=== PATIENT | female | born 1960 | race Caucasian/White ===

== ENCOUNTER 2019-07-05 13:30 | Outpatient (RCR) | payer BC, SELFPAY ==
[2019-05-29 09:06] VITALS: PULSE 80
--- NOTE | 2019-07-02 09:58 | PCCPR ---
Absent due to illness Juany called states she has a cold and earache. She verbalized she plans to see her provider.
--- NOTE | 2019-07-05 07:01 | PCCPR ---
Pt called and is still feeling sick- cxl CR 07/04; hopes to return thurs. 07/05.
--- NOTE | 2019-07-06 08:27 | PCCPR ---
07/05/19 Juany attended her exercise session during exercise her heart rate was elevated in the 140's with irregularities and possibly Afib, flutter, SVT. We had her switch to seated exercise and skip free weights. At the recovery phase her HR did not come down. We retained called her [employer] [facility]'s office Dr Edgardo Cee spoke with the MA and later heard the doctors instruction for Juany to come to their office for evaluation. Her transported her.
--- NOTE | 2019-07-06 08:34 | PCCPR ---
Followed up with Juany today she is hospitalized States she was given Cardiazem IV and is scheduled for an ADAMS today. States the MD spoke of adding sotolol. Asked Juany to keep us informed. Explained we will call and check on her. Reinforced once released we will need a release to resume rehab.
--- NOTE | 2019-07-09 13:49 | PCCPR ---
Juany called states she was released from the hospital over the weekend States she still feels fatigued and did not get much rest there. She feels weak and tired will be off until she goes to see the MD on . Explained we need a written release to return to rehab.
--- NOTE | 2019-07-18 13:58 | PCCPR ---
Left voicemail requesting Juany call us back on her plan to return.
--- NOTE | 2019-07-25 14:49 | PCCPR ---
Have not heard from Juany, called today to inquire about her return, did not answer, left message.
--- NOTE | 2019-08-01 13:52 | PCCPR ---
Called Juany again today, left message to let us know her plans for returning.
--- NOTE | 2019-08-08 09:33 | PCCPR ---
Program is temporarily suspended due to COVID outbreak.
--- NOTE | 2019-08-08 09:51 | PCCPR ---
Continued absence Spoke with Juany she had a 3 week hospitalization related to her heart rate and ryhthm. She is now on sotolol and later started on cardiazem to control her rate and rhythm. she is now seeing an named account executive considering hormonal influence in her situation. States she has not been feeling well and has been staying in concerned about the current corono virus crisis. Explained that currently we are closed and hope to resume pts in next few weeks. She said her Claims Attorney did want her to return to rehab however she does not have a written release. Let her know to expect a call from us when we are able to resume service.
--- NOTE | 2019-08-15 13:55 | PCCPR ---
Called patient in regards to the temporary closure of our department continuing until at least September 12. Juany states she is finally getting some energy back after the hospitalization and the medication changes. She is trying to get some exercise in, but admits it hasn't been much. Will mail out temporary home exercise guidelines. Will continue to follow patient weekly.
--- NOTE | 2019-08-22 11:32 | PCCPR ---
Called Juany today for weekly check, did not answer the phone, left a message.
--- NOTE | 2019-08-28 15:18 | PCCPR ---
Called to check on Juany for our weekly phone calls no answer and message left.
--- NOTE | 2019-09-05 13:35 | PCCPR ---
Weekly update call-Left message.
--- NOTE | 2019-09-12 13:50 | PCCPR ---
Weekly update call-Left message informing patient of continued closure through the month of September due to the extension of the fdc in place order.
--- NOTE | 2019-09-27 12:55 | PCCPR ---
Starting Bi-Weekly calls. Left message for patient.
--- NOTE | 2019-10-11 14:51 | PCCPR ---
Bi-weekly phone call make, no answer, left message.
--- NOTE | 2019-11-09 14:02 | PCCPR ---
Juany called two weeks ago to inform her that Cardiac rehab was reopening on November 18. Unable to talk with her, message left to return call if wanting to return. Have not received call, Juany discharge from program.
== END 2019-07-05 23:59 | disposition home or self-care (01) ==
LOC: ANHCPREHAB 13:30
PROVIDERS: PCP Family Medicine
DX: Z95.2 Presence of prosthetic heart valve (principal)
CPT/HCPCS: 93798

== ENCOUNTER 2019-09-26 02:26 | Observation (INO) | payer BC, SELFPAY ==
[2019-09-26] VITALS (18 sets, daily range): BP systolic 106–150; BP diastolic 73–87; PULSE 72–112; RESP 12–20; TEMP 36.7–37.1; O2SAT 96–99; BMI 25.9
--- NOTE | ~2019-09-26 | US_ITS ---
EXAMINATION: US right upper quadrant DATE: 09/26/2019 15:10 INDICATION: Abdominal pain. TECHNIQUE: Multiple grayscale and Doppler ultrasound images of the abdomen were obtained. COMPARISON: CT abdomen and pelvis 09/26/2019 FINDINGS: The visualized portions of the head and body of the pancreas are normal. The liver is hemant l without focal lesion. There is normal flow in main portal vein. The gallbladder is normal in size a nd contains sludge. No gallstones or gallbladder wall thickening. There was no sonographic Zee sig n. The common duct is normal and measures 3 mm. IMPRESSION: 1. Gallbladder sludge. No evidence of acute cholecystitis. Reviewed, dictated and finalized at location A.
--- NOTE | ~2019-09-26 | XR_ITS ---
EXAMINATION: XR chest 2V DATE: 09/26/2019 03:07 INDICATION: Chest pain. TECHNIQUE: Frontal and lateral views of the chest were obtained. COMPARISON: CT abdomen and pelvis 09/26/2019 FINDINGS: There is no pneumonia, pleural effusion, or pneumothorax. Cardiomegaly is noted. There are changes of mitral valve replacement. IMPRESSION: 1. Cardiomegaly. Reviewed, dictated and finalized at location A. IMPRESSION: 1. Cardiomegaly.
--- NOTE | ~2019-09-26 | CT_ITS ---
EXAMINATION: CT abdomen pelvis w con DATE: 09/26/2019 04:08 INDICATION: Epigastric abdominal pain. TECHNIQUE: Computed tomography (CT) of the abdomen and pelvis was performed with 100 mL Omnipaque 350 intravenous contrast. Automated exposure control and iterative reconstruction technique were employe d. The dose-length product was 498.21 mGy-cm. COMPARISON: CT abdomen and pelvis 11/18/2014 FINDINGS: The visualized portions of the lung bases demonstrate smooth septal thickening and mild deandra undglass opacities. There is mild dependent atelectasis bilaterally. No pleural effusion. Cardiomegal y is noted. There are changes of mitral replacement. No pericardial effusion. The liver demonstrates periportal edema. Again seen is a 14 mm hyperenhancing mass in left hepatic lobe, likely a hemangioma or focal nodular hyperplasia. The gallbladder, spleen, pancreas, and left adrenal gland are normal. Again seen is an 8 mm mass in right adrenal gland, likely an adenoma. There are cysts in the kidneys measuring up to 11 mm on the right. There are no dilated loops of bowel. There is diverticulosis of t he colon without evidence of diverticulitis. The appendix is normal. There are no pathologically enla rged lymph nodes. There is no free intraperitoneal fluid. There is a 2.4 cm cyst in right ovary, like ly benign. There is mild lumbar spondylosis. Lumbar dextrocurvature is noted. IMPRESSION: 1. Mild lung disease, which may be mild pulmonary edema or atypical pneumonia. 2. Cardiomegaly. Reviewed, dictated and finalized at location A.
--- NOTE | 2019-09-26 02:37 | ECG_ITS ---
Measurements Intervals [place] Rate: 72 P: 45 MA: 192 QRS: -26 QRSD: 100 T: 14 QT: 393 QTc: 432 Interpretive Statements SINUS RHYTHM BASELINE WANDER- I, II, III NORMAL ECG Electronically Signed On 09-26-2019 7:13:15 CDT by Scot Montemayor D.O.
[2019-09-26 03:03] LABS: Basophils Percent Auto 0.1 % (0.2-1.2); Eosinophils Absolute Auto 0.1 K/mm3 (0-0.3); Eosinophils Percent Auto 0.9 % (0-4.4); Hematocrit 41.4 % (37.0-47.0); Hemoglobin 13.1 g/dL (12.0-15.0); Immature Granulocyte Absolute 0.01 K/mm3 (0.00-0.031); Immature Granulocyte Percent A 0.1 % (0-0.5); Lymphocytes Absolute Auto 3.89 K/mm3 (0.9-3.2); Lymphocytes Percent Auto 49.7 % (18.3-44.2); Mean Corpuscular HGB Conc 31.6 g/dl (32-36); Mean Corpuscular Hemoglobin 26.2 pg (26-34); Mean Corpuscular Volume 82.8 fl (80-100); Mean Platelet Volume 10.2 fl (7.4-10.4); Monocytes Absolute Auto 0.6 K/mm3 (0.1-0.6); Monocytes Percent Auto 7.5 % (2.6-8.5); Neutrophils Absolute Auto 3.3 K/mm3 (1.3-6.7); Neutrophils Percent Auto 41.7 % (45.5-73.1); Platelet Count Result 284 k/mm3 (150-375); Red Cell Distribution Width 19.1 % (11.5-14.5); White Blood Count 7.8 K/mm3 (4.5-10.0)
[2019-09-26 03:07] LABS: INR 1.8; Prothrombin Time 20.7 Seconds (11.1-14.7)
[2019-09-26 03:08] LABS: Partial Thromboplastin Time 32.5 SECONDS (22.3-36.8)
[2019-09-26 03:11] LABS: Alanine Aminotransferase 138 U/L (4-35); Albumin Level 4.2 g/dL (3.5-5.1); Alkaline Phosphatase 152 U/L (38-126); Aspartate Amino Transferase 240 U/L (14-36); Bilirubin,Total 0.3 mg/dL (0.2-1.3); Lipase 314 U/L (23-300)
[2019-09-26 03:17] LABS: Blood Urea Nitrogen 21 mg/dL (7-17); Calcium 11.5 mg/dL (8.4-10.2); Carbon Dioxide 32 mmol/L (22-30); Chloride 102 mmol/L (98-107); Estimated CRCL calculation 50 ml/min; Estimated Glomerular Filt Rate > 60; Glucose 118 mg/dL (65-105); Potassium 4.2 mmol/L (3.4-5.0); Sodium 136 mmol/L (137-145)
[2019-09-26 03:29] LABS: Troponin I < 0.012 ng/mL (0.000-0.034)
[2019-09-26] MEDS: LACTATED RINGERS 1,000 ML 999 ML IV CONT (03:40)
--- NOTE | 2019-09-26 03:57 | ED.CHESTPAIN ---
HPI - Chest Pain General Chief Complaint: Chest Pain Stated Complaint: chest pain Time Seen by Provider: 09/26/19 03:04 Source: patient Mode of arrival: EMS Limitations: no limitations History of Present Illness HPI narrative: This patient is a 59 yo female who presents for evaluation of sudden onset epigastric pain. Patient states she woke up with squeezing in a band fashion around her upper abdomen. She states this pain radiated to her back. She has been having intermittent pain similar to this since she had her valve repair 5 months ago. She denies shortness of breathing, nausea or vomiting. She also denies fever or chills. She reports having normal cardiac cath in march 2019. Onset (ago): minute(s) Timing of current episode: constant and other (resolving) Prior episodes: Yes Onset: during rest Pain location: epigastric Pain radiation: back Quality: other (squeezing bandlike) Related Data Home Medications Medication Instructions Recorded Confirmed aspirin [Aspirin Low Dose] 81 mg PO DAILY 05/29/19 05/29/19 verapamil 120 mg PO DAILY 05/29/19 05/29/19 warfarin [Coumadin] 4 mg PO DAILY 05/29/19 05/29/19 diltiazem HCl [Cardizem] 120 mg PO Q8H 09/26/19 sotalol 40 mg PO BID 09/26/19 Allergies Allergy/AdvReac Type Severity Reaction Status Date / Time No Known Allergies Allergy Verified 09/26/19 02:31 Review of Systems Review of Systems: All systems reviewed & are unremarkable except as noted in HPI and below Constitutional: Constitutional: Denies chills and Denies fever(s) Cardiovascular: Cardiovascular: Denies rapid heart rate and Denies radiating jaw, neck or arm pain Respiratory: Respiratory: Denies cough and Denies dyspnea Gastrointestinal: Gastrointestinal: Denies diarrhea, Denies nausea and Denies vomiting Musculoskeletal: Musculoskeletal: Reports back pain PMFSH Past Medical History Medical History (Updated 09/26/19 @ 07:46 by James South MD) Atrial fibrillation Surgical History Surgical History (Updated 09/26/19 @ 07:53 by Dorota Jain MD) H/O mitral valve repair Social History Social History Smoking status: Never smoker Second hand tobacco smoke exposure: Yes Alcohol intake: former Substance use: never Spiritual care concerns: No Exam Narrative: Exam Narrative: GENERAL: Well-appearing, well-nourished, and in no acute distress. HEAD: Normocephalic, atraumatic EYES: PERRLA and EOMI, conjunctiva clear without discharge THROAT:Mucous membranes moist, Oropharynx normal without erythema, exudate, peritonsillar swelling or fluctuance NECK: Supple, without lymphadenopathy or mass RESPIRATORY: No respiratory distress, Airway patent, Respirations non-labored, Clear to auscultation without rales, rhonchi or wheeze HEART: Regular rate and rhythm. No murmur heard. Normal peripheral pulses. ABDOMEN: Soft, nontender, nondistended, normal active bowel sounds. No masses. No rebound or guarding, No organomegaly. EXTREMITIES: No edema, normal strength with full range of motion. SKIN: Warm, dry, normal color without rash NEURO: Alert and oriented x3. CN 2-12 grossly intact. No focal deficits. PSYCH: Normal mood and affect. Course Reevaluation(s) Reevaluation #1: I discussed with patient that she her CT scan reported atypical pneumonia. She reports intermittent cough but states it has not been significant. I discussed she will be assessed for covid. Her oxygen was found to be 89-90% on room air by nursing staff so she is now on nasal cannula oxygen and she will be admitted. She reports history of hypercalcemia and elevated lfts. Date: 09/26/19 Time: 06:09 Consultations Consultation #1: I Discussed case with Dr. Carter who accepts patient for admission to IMU. Date: 09/26/19 Time: 06:11 Vital Signs Vital signs: Vital Signs Temperature 98.4 F 09/26/19 02:25 Pulse Rate 73 09/26/19 02:25 Respiratory Rate 17 09/26/19 02:25 Blood Pressure 123/82
--- NOTE | 2019-09-26 05:26 | PC.NURSE ---
Patient placed on 2L O2 via NC at this time. Patient's O2 saturations began to range from 87%-92%. Patient in no respiratory distress, speaking in full sentences.
[2019-09-26 06:13] LABS: Alveolar/Arterial O2 Gradient 54.1 mmHg; Base Excess ABG -2.1 mEq/l (+/-2.0); Carboxyhemoglobin 0.5 % THb (0-2.0); Fractional Inspired Oxygen 28 %; HCO3 ABG 22.6 mEq/l (22.0-26.0); Methemoglobin ABG 0.2 %THb (0-1.5); Oxygen Content ABG 19.2 %vol (16.0-22.0); Oxygen Saturation ABG 97.5 % (95.0-100.0); Oxyhemoglobin 96.5 % THb (90.0-100.0); PCO2 ABG 38.7 mmHg (35.0-45.0); PO2 ABG 99.9 mmHg (80.0-100.0); PO2 FiO2 Ratio Arterial Blood 3.57 %; Reduced Hemoglobin 2.8 %THb (0-5.0); Total Hemoglobin 14.1 g/dL (12.0-18.0); pH ABG 7.385 (7.350-7.450)
[2019-09-26 06:14] LABS: Device NASAL CANNULA; Modified Allen's Test Pass; Site Drawn LEFT RADIAL
[2019-09-26 06:32] LABS: NT Pro B Type Natriuretic Pept 194 PG/ML (5-100)
--- NOTE | 2019-09-26 06:37 | PC.NURSE ---
Patient placed on room air at this time, O2 saturations 94%-96%.
[2019-09-26 07:05] LABS: Troponin I 0.015 ng/mL (0.000-0.034)
--- NOTE | 2019-09-26 07:39 | PM.IMHP ---
H&P: HPI History of Present Illness Chief complaint: chest pain,hypoxia,suspected covid Narrative: Juany Dawkins is a 59 year old female here for upper abdominal pain that woke her up this morning around 2AM. She has not had previous episodes of abdominal pain recently. She was recently treated for a UTI with Bactrim with her last dose on September 22. She had a mild fatty meal the night before. Liver enzymes are elevated here but she states that she has chronic elevation of the liver enzymes but cannot tell me the severity of this. She is not sure that she has had a full workup but did say that she had a ultrasound of the liver that was normal. She denies alcohol use. No history of IV drug use. No exposures to needle sticks or blood products. She does not use acetaminophen. She denies any fever, chills, chest pain, palpitations, shortness of breath or cough. She is having recurrent urine frequency and is concerned her UTI has returned. She is noted to have elevated calcium level here but this also is longstanding is being evaluated by an project drilling engineer. No definitive diagnosis has been made but felt related to thyroid disease. Patient presented to [facility] in March for shortness of breath found to have atrial fibrillation, mitral valve prolapse with severe mitral valve regurgitation. She was transferred to [facility] and underwent mitral valve repair and Maze procedure. She did undergo left heart catheterization which showed clean coronary arteries per patient. She was hospitalized for a total of 2 weeks. She lost approximately 36 lb and has not regained this weight since discharge. She has been modifying her diet since discharge. She had recurrent atrial fibrillation and was hospitalized again in June [facility]. She remains on warfarin for the atrial fibrillation. She has had multiple medication adjustments but is currently on diltiazem and sotalol for rate maintenance. Because of the abdominal pain, patient presented to the emergency room for evaluation. In the emergency room, patient was hemodynamically stable. Patient in ED found to have pulse ox 89-90% and CT of the abdomen showing bibasilar groundglass opacities. She was tested for COVID. She has not had any exposure that she is aware of but her is an essential worker. Exposed to family on Tuesday as well. AST 240 and ALT 138 on admission. Calcium 11.5 which is where her calcium has been in the past. She was treated with morphine and Zofran and started on IVF. She was admitted to IMU. She feels better this morning. Review of Systems Review of Systems: All systems reviewed & are unremarkable except as noted in HPI and below PMFSH Past Medical History Medical History (Updated 09/26/19 @ 11:25 by James South MD) Atrial fibrillation Elevated LFTs Hx of fracture of radius Hypercalcemia Mitral regurgitation Mitral valvular prolapse Thyroid nodule Surgical History Surgical History (Updated 09/26/19 @ 11:02 by James South MD) H/O mitral valve repair Hx of cardiac catheterization Clean coronaries in Mar 2019 Hx of foot surgery bilaterally Hx of prior ablation treatment For SVT Family History Family History Father Kidney disease PCKD Social History Social History (Updated 09/26/19 @ 11:03 by James South MD) Social History: Lives at home with her . Lifelong nonsmoker. No alcohol or drug use. Full code. She nominates her be the individual who would make medical decisions for her if she is unable. Smoking status: Never smoker Second hand tobacco smoke exposure: Yes Alcohol intake: former Substance use: never Spiritual care concerns: No Meds Home Medications and Allergies Home Medications Medication Instructions Recorded Confirmed Type aspirin [Aspirin Low Dose] 81 mg PO DAILY 05/29/19 09/26/19 His
--- NOTE | 2019-09-26 07:42 | PC.NURSE ---
This patient, Juany Dawkins, was admitted to Intensive Care Unit-5. Patient/family oriented to hospital policies and general routines including ID bracelet, bed and alarms, visiting hours, pain management, procedures, bathroom and other care routines, personal items, smoking policy, room service/diet, and visiting hours. Valuables list has been completed. Information on how to activate the Rapid Response Team has been discussed. Patient/Family are encouraged to report perceived risks to care and to ask questions if they do not understand what they are told or what they should do.
[2019-09-26] MEDS: ASPIRIN 81 MG ENTERIC TABLET PO (12:01)
[2019-09-26] MEDS: SOTALOL HCL 40 MG TABLET PO ×2 (12:01→20:38)
[2019-09-26 16:38] LABS: SARS-CoV-2 RNA PCR Negative
--- NOTE | 2019-09-26 18:01 | PC.NURSE ---
Dr. South notified of Covid-19 results negative. Droplet precautions d/c'd. Standard Precautions initiated. Clarification also received on the 6 hour troponin from 0830 this AM. Unable to obtain specimen after several attempts, will add it to AM labs for tomorrow.
--- NOTE | 2019-09-26 18:45 | PC.NURSE ---
This patient, Juany Dawkins, was transferred to [ 316] on 09/26/19 at 1851. Personal belongings sent with patient. Belongings list checked and signed with receiving [ ]. Report given to [NISHA Ha @ [id number] ]. Appropriate documentation sent with patient.
--- NOTE | 2019-09-26 18:54 | PC.NURSE ---
This patient, Juany Dawkins, was received from [ICU] on 09/26/19 at 1850. Personal belongings list checked and signed. Patient/family oriented to unit policies and routines
[2019-09-26] MEDS: WARFARIN (*PBKC) 5 MG TABLET PO (20:37)
[2019-09-26 21:11] LABS: Add Urine Microscopic? YES; Appearance Urine Clear (Clear); Bilirubin Urine Negative (Negative); Blood Urine 2+ (Negative); Color Urine Straw (Yellow); Glucose Urine UA Negative (Negative); Ketones Urine Negative (Negative); Leukocyte Esterase Ur Negative LEU/UL (Negative); Mucus Urine Rare /lpf; Nitrate Urine Negative (Negative); Protein Urine Negative (Negative); Specific Grav Ur 1.012 (1.001-1.035); Squamous Epithelial Cell Urine Rare /hpf (Few); Urobilinogen Urine Negative mg/dL (<2.0); WBC Urine 0-3 /hpf
[2019-09-27] VITALS (9 sets, daily range): BP systolic 93–110; BP diastolic 50–74; PULSE 70–100; RESP 16–20; TEMP 36.4–36.8; O2SAT 96–98
[2019-09-27 07:33] LABS: Basophils Percent Auto 0.6 % (0.2-1.2); Eosinophils Absolute Auto 0.1 K/mm3 (0-0.3); Eosinophils Percent Auto 2.5 % (0-4.4); Hematocrit 42.2 % (37.0-47.0); Hemoglobin 13.1 g/dL (12.0-15.0); Immature Granulocyte Absolute 0.01 K/mm3 (0.00-0.031); Immature Granulocyte Percent A 0.2 % (0-0.5); Lymphocytes Absolute Auto 2.23 K/mm3 (0.9-3.2); Mean Corpuscular Volume 83.7 fl (80-100); Mean Platelet Volume 10.9 fl (7.4-10.4); Monocytes Absolute Auto 0.4 K/mm3 (0.1-0.6); Neutrophils Percent Auto 41.7 % (45.5-73.1); Platelet Count Result 253 k/mm3 (150-375); Red Blood Count 5.04 M/mm3 (4.2-5.4); Red Cell Distribution Width 19.2 % (11.5-14.5); White Blood Count 4.7 K/mm3 (4.5-10.0)
[2019-09-27 07:43] LABS: Prothrombin Time 21.9 Seconds (11.1-14.7)
[2019-09-27 08:08] LABS: Parathyroid Intact 118.6 pg/mL (7.5-53.5); Troponin I < 0.012 ng/mL (0.000-0.034)
[2019-09-27 08:18] LABS: Alanine Aminotransferase 466 U/L (4-35); Alkaline Phosphatase 140 U/L (38-126); Aspartate Amino Transferase 277 U/L (14-36); Bilirubin,Total 0.6 mg/dL (0.2-1.3); Blood Urea Nitrogen 14 mg/dL (7-17); Calcium 10.9 mg/dL (8.4-10.2); Carbon Dioxide 26 mmol/L (22-30); Chloride 105 mmol/L (98-107); Estimated CRCL calculation 73 ml/min; Estimated Glomerular Filt Rate > 60; Glucose 88 mg/dL (65-105); Lipase 177 U/L (23-300); Sodium 136 mmol/L (137-145)
[2019-09-27] MEDS: ASPIRIN 81 MG ENTERIC TABLET PO (08:54)
[2019-09-27] MEDS: SOTALOL HCL 40 MG TABLET PO (09:21)
[2019-09-27 10:29] LABS: Hepatitis B Surface Antigen Negative (Negative)
[2019-09-27 10:35] LABS: HAV RESULT Negative (Negative); Hepatitis B Core IgM Result Negative (Negative)
[2019-09-27 10:47] LABS: Hepatitis C Virus Antibody Negative (Negative)
--- NOTE | 2019-09-27 12:01 | PM.IMPN ---
Progress Note: A&P Assessment and Plan (1) Elevated LFTs: Code(s): R79.89 - Other specified abnormal findings of blood chemistry Status: Acute Assessment and Plan: No abdominal pain currently. Lipase normal on recheck. CT scan showing periportal edema but normal appearing Gallbladder. Levels higher now with AST 277 with ALT 466 but bilirubin remains normal. AP level mildly elevated on admission but better today. Gallbladder US showing sludge but no evidence of acute cholecystitis. Old records reviewed and AST and ALT have been mildly elevated at prior hospitalizations but not to the extent seen here. Hepatitis panel and SARS-CoV-2 PCR negative. Probably related to a viral illness affecting the liver given the periportal edema and mild lymphocytosis. Doubt hepatic congestion. Will consult GI. Patient asymptomatic so consider further outpatient workup. (2) Abdominal pain: Qualifiers: Abdominal location: epigastric Qualified Code(s): R10.13 - Epigastric pain Code(s): R10.9 - Unspecified abdominal pain Status: Acute Assessment and Plan: Transient abd pain that resolved on admission and has not recurred. Not taking narcotics. Doubt gastritis or PUD. Suspect abd pain related to above. (3) Pneumonia: Qualifiers: Laterality: bilateral Lung location: lower lobe of lung Pneumonia type: due to unspecified organism Qualified Code(s): J18.9 - Pneumonia, unspecified organism Code(s): J18.9 - Pneumonia, unspecified organism Status: Acute Assessment and Plan: CT scan of the abdomen showing the lung bases demonstrating smooth septal thickening and mild groundglass opacities. There is mild dependent atelectasis bilaterally. Patient with no significant cough. Normal white count. No fevers or chills. Patient may have possible viral pneumonia. There is also a history of staph PNA to suggest this may be more chronic, possibly scarring. Doubt that this is bacterial in nature. Abx on hold for now. Remains on room air. (4) Hypoxia: Code(s): R09.02 - Hypoxemia Status: Acute Assessment and Plan: Patient mildly hypoxic in the emergency room. Patient has been weaned to room air early on her admission. CT scan of the abdomen showing bibasilar ground-glass opacities. BNP 194. COVID testing negative. Consider viral pneumonias, scarring or possibly pulmonary edema. Remains on room air. (5) Atrial fibrillation: Qualifiers: Atrial fibrillation type: paroxysmal Qualified Code(s): I48.0 - Paroxysmal atrial fibrillation Code(s): I48.91 - Unspecified atrial fibrillation Status: Acute Assessment and Plan: Patient normal sinus rhythm by EKG and telemetry. Dltiazem and sotalol resumed. INR therapeutic. Will continue the warfarin. Okay to stop tele (6) Hypercalcemia: Code(s): E83.52 - Hypercalcemia Status: Acute Assessment and Plan: Patient with known hypercalcemia. Old records reviewed and calcium level to 11.6 in June and 11.2 in March. iPTH here is elevated at 119 felt related to parathyroid disease. She has known thyroid nodules. Calcium better at 10.9. Continue to monitor. Subjective Date/time seen: 09/27/19 12:01 Interval history: 59yo female here for abdominal pain. No further abd pain. Eating normally without n/v. No CP or SOB. No cough. States that she has had lung findings on prior imaging studies (but only CXR reports in the old records showing clear lung knight). Exam Narrative: Exam Narrative: Gen - NARD Chest -left base inspir crackles o/w clear, nml RR CV - RRR S1/S2 with a 2/6 systolic murmur heard loudest at apex. Tele showing no significnat dysrhythmias Abd - Soft, NT/ND, Positive BS Ext - No pedal edema Psych - Nml mood and affect Skin - Warm and dry Objective Data Vital Signs Vital Signs: Vital Signs - 24 hr
--- NOTE | 2019-09-27 14:42 | WPDGICN ---
Assessment and Plan Assessment and plan (1) Elevated LFTs: Code(s): R79.89 - Other specified abnormal findings of blood chemistry Status: Acute Assessment and Plan: probably multifactorial (recent use of antibiotics for UTI, also viral infection although COVID negative, pulmonary congestion) but she is feeling better now, no more discomfort. CT and ultrasound reviewed. hepatitis panel negative Recommend to trend lft's but she would rather go if possible since she is asymptomatic now, we can get blood work and then she can follow up in my office in ~ 2 weeks (2) Abdominal pain: Qualifiers: Abdominal location: epigastric Qualified Code(s): R10.13 - Epigastric pain Code(s): R10.9 - Unspecified abdominal pain Status: Acute Assessment and Plan: resolved (3) Hypercalcemia: Code(s): E83.52 - Hypercalcemia Status: Acute Assessment and Plan: probably hyperparathyroidism- she will see her educator senior clinical (4) Atrial fibrillation: Qualifiers: Atrial fibrillation type: paroxysmal Qualified Code(s): I48.0 - Paroxysmal atrial fibrillation Code(s): I48.91 - Unspecified atrial fibrillation Status: Acute Assessment and Plan: on coumadin (5) Hypoxia: Code(s): R09.02 - Hypoxemia Status: Acute Assessment and Plan: resolved (6) H/O mitral valve repair: Code(s): Z98.890 - Other specified postprocedural states Status: Acute (7) Anticoagulant long-term use: Code(s): Z79.01 - custodial (current) use of anticoagulants Status: Acute GI Consult Note Consult date/time: 09/27/19 14:42 Reason for consult: elevated liver enzymes HPI: Juany Dawkins is a 59 year old female with history of A-Fib, MVR 04/2019 on coumadin, hypercalcemia (work up in process with educator senior clinical) and mild elevated liver enzymes (transaminse in 40's) here with new onset of epigastric/chest discomfort that woke her up. She was worried that could be her heart and came to ER. Troponins negative, BNP 190, had elevated transaminses 200-400's, normal bili. CT scan showed liver with mild periportal edema, mild lung disease, which may be mild pulmonary edema or atypical pneumonia and cardiomegaly. Abdominal ultrasound with normal bile duct size, GB sludge without cholecystitis. She denies any more discomfort and is feeling better. She also recently diagnosed with UTI (did not have urine sample and had virtual visit with her doctor)- treated with nitrofurantoin and then with bactrim that just completed few days ago. No fever or chills, no N/V, normal appetite. Review of Systems Review of Systems: All systems reviewed & are unremarkable except as noted in HPI and below Constitutional: Constitutional: Denies chills and Denies fever(s) Eyes: Eyes: Denies blurry vision ENT: Denies nasal congestion Cardiovascular: Cardiovascular: Denies rapid heart rate and Denies radiating jaw, neck or arm pain Respiratory: Respiratory: Denies cough and Denies dyspnea Gastrointestinal: Gastrointestinal: Denies diarrhea, Denies nausea and Denies vomiting Genitourinary: Genitourinary: Denies urinary incontinence Musculoskeletal: Musculoskeletal: Reports back pain Integumentary/Breasts: Skin/Breast: Denies skin pain Neurologic: Denies confusion Psychiatric: Psychiatric: Denies depression [facility] Past Medical History Medical History (Updated 09/27/19 @ 14:50 by Merrill Root MD) Anticoagulant long-term use Atrial fibrillation Elevated LFTs Hx of fracture of radius Hypercalcemia Mitral regurgitation Mitral valvular prolapse Thyroid nodule Surgical History Surgical History (Updated 09/27/19 @ 14:50 by Merrill Root MD) H/O mitral valve repair Hx of cardiac catheterization Clean coronaries in Mar 2019 Hx of foot surgery bilaterally Hx of prior ablation treatment For SVT Family History Family History (
--- NOTE | 2019-09-27 14:48 | PC.NURSE ---
1428 pt leaves floor via w/c per hospital staff, with all belongings and d/c instructions, med list and prescriptions.
--- NOTE | 2019-09-27 14:48 | PM.DS ---
DS: Diagnosis Admitting Diagnosis Admitting Diagnosis: Other specified abnormal findings of blood chemistry Discharge Diagnosis (1) Elevated LFTs: Code(s): R79.89 - Other specified abnormal findings of blood chemistry Status: Acute Assessment and Plan: No abdominal pain currently. Lipase 314 but normal on recheck. CT scan showing periportal edema but normal appearing Gallbladder. Levels higher now with AST 277 with ALT 466 but bilirubin remains normal. AP level mildly elevated on admission but better today. Gallbladder US showing sludge but no evidence of acute cholecystitis. Old records reviewed and AST and ALT have been mildly elevated at prior hospitalizations but not to the extent seen here. Hepatitis panel and SARS-CoV-2 PCR negative. Probably related to a viral illness affecting the liver given the periportal edema and mild lymphocytosis. Doubt hepatic congestion. Patient asymptomatic and is requesting discharge. GI felt patient could have further outpatient workup. Patient to follow up with GI in 2 weeks with new set of blood work. (2) Abdominal pain: Qualifiers: Abdominal location: epigastric Qualified Code(s): R10.13 - Epigastric pain Code(s): R10.9 - Unspecified abdominal pain Status: Acute Assessment and Plan: Transient abd pain that resolved on admission and has not recurred. Not taking narcotics. Doubt gastritis or PUD. Suspect abd pain related to above. (3) Pneumonia: Qualifiers: Laterality: bilateral Lung location: lower lobe of lung Pneumonia type: due to unspecified organism Qualified Code(s): J18.9 - Pneumonia, unspecified organism Code(s): J18.9 - Pneumonia, unspecified organism Status: Acute Assessment and Plan: CT scan of the abdomen showing the lung bases demonstrating smooth septal thickening and mild groundglass opacities. There is mild dependent atelectasis bilaterally. Patient with no significant cough. Normal white count. No fevers or chills. Patient may have possible viral pneumonia. There is also a history of staph PNA to suggest this may be more chronic, possibly scarring. Doubt that this is bacterial in nature. Antibiotics held. Remains on room air. (4) Hypoxia: Code(s): R09.02 - Hypoxemia Status: Acute Assessment and Plan: Patient mildly hypoxic in the emergency room. Patient has been weaned to room air early on her admission. CT scan of the abdomen showing bibasilar ground-glass opacities. BNP 194. COVID testing negative. Consider viral pneumonias, scarring or possibly pulmonary edema. Remained on room air. (5) Atrial fibrillation: Qualifiers: Atrial fibrillation type: paroxysmal Qualified Code(s): I48.0 - Paroxysmal atrial fibrillation Code(s): I48.91 - Unspecified atrial fibrillation Status: Acute Assessment and Plan: Patient normal sinus rhythm by EKG and telemetry. Dltiazem and sotalol resumed. INR therapeutic. We continued her home medications. (6) Hypercalcemia: Code(s): E83.52 - Hypercalcemia Status: Acute Assessment and Plan: Calcium 11.5 on admission. Patient with known hypercalcemia. Old records reviewed and calcium level to 11.6 in June and 11.2 in March. iPTH here is elevated at 119 felt related to parathyroid disease. She has known thyroid nodules. Calcium better at 10.9. Patient to continue to follow with drywall taper. DS: Summary Hospital Course Reason for hospitalization: 59yo female here for abd pain . Please see H&P for details. Hospital Course: As above Time Spent with Patient Time attestation: Total time spent providing and/or coordinating discharge services:32 minuites Time spent: Greater than 30 minutes Specific discharge activities: discussed with GI. 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
--- NOTE | 2019-09-27 15:47 | PC.NURSE ---
pt d/c to home leaves floor w/ all belongings via w/c per hospital staff.
== END 2019-09-27 15:47 | disposition home or self-care (01) ==
LOC: ANHED 06:17 → ANHICU 06:44 → ANH3MEDSUR 18:41
PROVIDERS: Admitting Provider Family Medicine; Emergency Provider General Practice; PCP Family Medicine; Visit Provider Internal Medicine
DX: R10.13 Epigastric pain (principal); R79.89 Other specified abnormal findings of blood chemistry; J18.9 Pneumonia, unspecified organism; R09.02 Hypoxemia; Z20.828 Contact with and (suspected) exposure to other viral communicable diseases; I48.0 Paroxysmal atrial fibrillation; E83.52 Hypercalcemia; E04.1 Nontoxic single thyroid nodule; Z98.890 Other specified postprocedural states; Z79.01 Long term (current) use of anticoagulants; Z79.82 Long term (current) use of aspirin
CPT/HCPCS: 36415; 36600; 71046; 74177; 76705; 80048; 80053; 80074; 80076; 81001; 82375; 82805; 83050; 83690; 83880; 83970; 84484; 85025; 85610; 85730; 87635; 93005; 96360; 99285; A9270; C9803; G0378; J7120; Q9967; U0003